=== PATIENT | female | born 1990 | race Hispanic/Latino ===

== ENCOUNTER 2017-02-04 22:56 | Emergency (ER) | payer OTHER ==
[2017-02-04 23:19] VITALS: PULSE 89; RESP 16; TEMP 99.2; O2SAT 100
--- NOTE | 2017-02-04 23:41 | ED PDOC ---
HPI: Female Pain Time Seen by Provider: 02/04/17 23:23 Chief Complaint (Nursing): Female Genitourinary Chief Complaint (Provider): dysuria History Per: Patient History/Exam Limitations: no limitations Onset/Duration Of Symptoms: Hrs (4) Current Symptoms Are (Timing): Still Present Quality Of Discomfort: Burning, "Pain" Additional History Per: Patient Additional Complaint(s): 26 y/o female presents with dysuria x 4 hours. Associated increased urgency, frequency, and now with hematuria. Patient took a double dose of Bactrim DS left over from previous urine infection, as well as pyridium. Denies fever, nausea/vomiting, back pain, changes in bowel movements. Past Medical History Reviewed: Historical Data, Nursing Documentation, Vital Signs Vital Signs: Last Vital Signs Temp 99.2 F 02/04/17 23:15 Pulse 89 02/04/17 23:15 Resp 16 02/04/17 23:15 BP 133/80 02/04/17 23:15 Pulse Ox 100 02/04/17 23:15 - Medical History PMH: No Chronic Diseases - Surgical History Surgical History: No Surg Hx - Family History Family History: States: No Known Family Hx - Home Medications Home Medications: Ambulatory Orders Medication Instructions Recorded Sulfamethoxazole/Trimethoprim 1 tab PO BID #10 tab 02/05/17 [Bactrim DS 800 mg-160 mg] - Allergies Allergies/Adverse Reactions: Allergies Allergy/AdvReac Type Severity Reaction Status Date / Time No Known Allergies Allergy Verified 02/04/17 23:15 Review of Systems ROS Statement: Except As Marked, All Systems Reviewed And Found Negative Genitourinary Female: Positive for: Dysuria, Frequency, Hematuria Physical Exam - Reviewed Nursing Documentation Reviewed: Yes Vital Signs Reviewed: Yes - Physical Exam Appears: Positive for: Well, Non-toxic, No Acute Distress Head Exam: Positive for: ATRAUMATIC, NORMAL INSPECTION, NORMOCEPHALIC Skin: Positive for: Normal Color Cardiovascular/Chest: Positive for: Regular Rate, Rhythm Respiratory: Positive for: Normal Breath Sounds Gastrointestinal/Abdominal: Positive for: Bowel Sounds, Soft, Tenderness ( suprapubic) Back: Positive for: Normal Inspection Extremity: Positive for: Normal ROM - ECG O2 Sat by Pulse Oximetry: 100 - Progress ED Course And Treament: Patient notes relief of symptoms after Toradol. Rx Bactrim DS provided with instructions to take as directed. Follow up PMD 2-3 days. Return to ED for worsening/concerning symptoms. Disposition - Clinical Impression Clinical Impression: Urinary tract infection - Patient ED Disposition Is Patient to be Admitted: No Counseled Patient/Family Regarding: Studies Performed, Diagnosis, Need For Followup, Rx Given - Disposition Disposition: Routine/Home Disposition Time: 00:44 Condition: IMPROVED Prescriptions: Sulfamethoxazole/Trimethoprim [Bactrim DS 800 mg-160 mg] 1 tab PO BID #10 tab Instructions: Urinary Tract Infection in Women (ED)
[2017-02-05 00:51] VITALS: BP 124/76
== END 2017-02-05 00:51 | disposition home or self-care (01) ==
LOC: H.ER 22:56
DX: N39.0 Urinary tract infection, site not specified (principal)
CPT/HCPCS: 81025; 87086; 96372; 99283; J1885